=== PATIENT | male | born 1990 | race African-American/Black ===

== ENCOUNTER 2017-03-31 15:09 | Emergency (ER) | payer OTHER ==
[~2017-03-31] VITALS: Ht 172.7 cm; Wt 117.5 kg
[2017-03-31 17:04] LABS: BLOOD UREA NITROGEN 15 mg/dL (7-18)
[2017-03-31 17:08] LABS: ASPARTATE AMINO TRANSFERASE 12 U/L (15-37)
[2017-03-31 17:18] VITALS: BP 150/89
[2017-03-31] MEDS ORDERED: MAALOX/HYOSCYAMINE/LIDOCAINE 45 ML BOTTLE ONE (17:28)
[2017-03-31] MEDS ORDERED: MAALOX/HYOSCYAMINE/LIDOCAINE 45 ML BOTTLE PO ONE (17:30)
== END 2017-03-31 18:32 | disposition home or self-care (01) ==
LOC: ED 18:26
DX: R10.13 Epigastric pain (principal); J45.909 Unspecified asthma, uncomplicated
CPT/HCPCS: 36415; 71010; 76700; 80053; 83690; 85025; 93005